=== PATIENT | male | born 1995 | race Caucasian/White ===

== ENCOUNTER 2021-03-23 18:50 | Emergency (ER) | payer SELFPAY ==
[~2021-03-23] VITALS: Ht 175.3 cm; Wt 68.0 kg
[2021-03-23 18:56] VITALS: BP 150/108
[2021-03-23 19:43] LABS: BASOPHILS % (AUTO) 0.7 % (0.0-2.0); EOSINOPHILS # (AUTO) 0.2 K/uL (0-0.4); EOSINOPHILS % (AUTO) 3.5 % (0.0-4.0); HEMOGLOBIN 12.6 g/dL (12.0-18.0); LYMPHOCYTES % (AUTO) 50.7 % (20.5-51.1); MEAN CORPUSCULAR HEMOGLOBIN 26 pg (27-31); MEAN CORPUSCULAR HGB CONC 33 g/dL (33-37); MEAN CORPUSCULAR VOLUME 77.9 fL (80-94); MONOCYTES # (AUTO) 0.5 K/uL (0.8-1.0); MONOCYTES % (AUTO) 8.2 % (1.7-9.3); NEUTROPHILS # (AUTO) 2.2 K/uL (1.8-7.7); NEUTROPHILS % (AUTO) 36.9 % (42.2-75.2); PLATELET COUNT (AUTO) 337 K/uL (140-450); RED BLOOD CELL COUNT(AUTO) 4.88 MIL/uL (4.20-6.10); RED CELL DISTRIBUTION WIDTH 18.4 % (11.6-13.7); WHITE BLOOD COUNT (AUTO) 5.9 K/uL (4.8-10.8)
[2021-03-23 19:57] LABS: ACETAMINOPHEN < 0.5 ug/ml (10-30); ALBUMIN 3.3 g/dL (3.4-5.0); ANION GAP 10.1 (8-16); ASPARTATE AMINOTRANSFERASE 98 U/L (15-37); CARBON DIOXIDE 33.1 mmol/L (21-32); CHLORIDE 104 mmol/L (98-107); CREATININE 0.8 mg/dL (0.6-1.3); GFR ARICAN-AMERICAN 150 mL/min (>90); GLUCOSE 109 mg/dL (74-106); POTASSIUM 3.2 mmol/L (3.5-5.1); SALICYLATE < 2.8 mg/dL (2.8-20.0); SODIUM SERUM 144 mmol/L (136-145); TOTAL BILIRUBIN 0.2 mg/dL (0.0-1.0); UREA NITROGEN, BLOOD 3 mg/dL (7-18)
--- NOTE | 2021-03-23 20:15 | NUR ---
Dr. Hanson examining patient.
--- NOTE | 2021-03-23 20:19 | NUR ---
PATIENT SLEEPING BUT ARRAUSBLE STABLE VITALS SIND IN NORMAL LIMITS SR ON MONITOR SOMETIME SINUS TACH 102 ACUTE CHECK 110 //DiCaprio RN Addendum: 03/23/21 at 3 by [email or web address] I MEAN ACCU-CHEK Addendum: 03/23/21 at 4 by [email or web address] I MEAN VITALS SIGNS
--- NOTE | 2021-03-24 | NUR ---
patient sleeping confortable stable not complaining of pain vital signs in normal limits SR 68 on monitor //DiCaprio RN
--- NOTE | 2021-03-24 02:44 | NUR ---
PATIENT ALERT ORIENTED NOT COMPLAINING OF PAIN VITAL SIGNS IN NORMAL LIMITS SR 64 ON MONITOR SPO2 100% at 2 liter //DiCaprio RN
--- NOTE | 2021-03-24 03:24 | NUR ---
PT SEEN ABLE TO AMBULATE IN THE ER WITHOUT ASSISTANCE
--- NOTE | 2021-03-24 03:30 | NUR ---
PATIENT ALERT ORIENTED NOT COMPLAINING OF PAIN VITALS SIGNS IN NORMAL LIMITS SR 64 ON MONITOR SPO2 100 % RA DC INSTRUCTION GAVE AND EXPLAINED ALSO WE GAVE TEACHING AND ADVICE ABOUT ALCOHOL INTOXICATION WE RECOMMEND TO GET A DESINTOXICATION PROGRAM DUE TO THE RISK OF ALCOHOL ABUSE WE RECOMMENDED TO COMING BACK TO THE HOSPITAL IF THE SYMPTOMS GET WORSE //DiCjasmyn RN
[2021-03-24 03:32] VITALS: BP 136/74
== END 2021-03-24 03:30 | disposition home or self-care (01) ==
LOC: MED 18:50
DX: F10.129 Alcohol abuse with intoxication, unspecified (principal); R47.81 Slurred speech; R40.0 Somnolence
CPT/HCPCS: 36415; 80053; 85025; 99285; G0480; G0482